=== PATIENT | female | born 1995 | race Caucasian/White ===

== ENCOUNTER 2017-07-08 10:01 | Emergency (ER) | payer OTHER ==
[~2017-07-08] VITALS: Wt 48.5 kg
[2017-07-08] MEDS ORDERED: ACETAMINOPHEN 500 MG TAB PO STA (10:42)
[2017-07-08] MEDS ORDERED: AZIT250T94 PO (10:43)
[2017-07-08] MEDS ORDERED: TYL500 PO (10:44)
[2017-07-08] MEDS ORDERED: D-ME473S18 PO (10:44)
--- NOTE | 2017-07-08 10:51 | ERD ---
ER Documentation Chief Complaint Date/Time DATE: 07/08/17 TIME: 10:46 Chief Complaint FEVER, THROAT PAIN, EAR PAIN, COUGH, BODYACHES, ONSET 7 DAYS HPI This is a 21-year-old female presents to the ER with fever, sore throat, productive cough, ear pain, body aches and been going on over the last 7 days. Patient denies any nausea vomiting or diarrhea. She denies any urinary frequency or dysuria. Patient took Motrin last night her fever, however fever returned this morning. Patient has not traveled anywhere recently. There are no sick contacts at home. She denies any chest pain or shortness of breath. She denies any neck pain or neck stiffness. ROS 12 point review of systems was done, all negative except per HPI. Medications Home Meds Active Scripts Acetaminophen* (Tylenol*) 500 Mg Tab, 500 MG PO Q4H Y for MILD PAIN LEVEL 1-3 for 5 Days, TAB Prov:ADELFO HAQUE 07/08/17 Dextromethorphan Hb-Promethazine Hcl (Promethazine DM Syrup) 473 Ml Syrup, 10 ML PO Q6H Y for 5, #4 OZ Prov:REINA HAQUEHITESH Bynum 07/08/17 Azithromycin* (Zithromax*) 250 Mg Tablet, 250 MG PO .ZPACK DIRECTED, #6 TAB TAKE 500 MG (2 TABS) THE FIRST DAY THEN 250 MG (1 TAB) DAYS 2-5 Prov:REINA HAQUEHITESH Bynum 07/08/17 Physical Exam Vitals Vital Signs Date Time Temp Pulse Resp B/P Pulse Ox O2 Delivery O2 Flow Rate FiO2 07/08/17 10:05 101.9 121 16 107/61 100 Physical Exam GENERAL: The patient is well-developed, well-nourished, in no acute distress. NECK: Cervical spine is non tender with no step off. Supple, no nuchal rigidity HEENT: Atraumatic. Pupils equal, round and reactive to light. Extraocular muscles are grossly intact. Conjunctivae pink, no discharge. Bilateral tympanic membranes are clear with no evidence of erythema, effusion or dulling of the light reflex. Tonsilar erythema with exudates, no uvular deviation no kissing tonsils. Clear rhinorrhea. RESPIRATORY: Clear to auscultation bilaterally. There are no rales, wheezes or rhonchi. HEART: Regular rate and rhythm. No murmurs, clicks, rubs or gallops. EXTREMITIES: No clubbing or cyanosis. Full range of motion. Grossly neurovascularly intact. NEUROLOGIC: Alert and oriented. Cranial nerves II through XII are intact. SKIN: There is no rash. The skin is warm and dry. Results 24 hrs Current Medications Medications (Trade) Dose Ordered Sig/Charissa Route PRN Reason Start Time Stop Time Status Last Admin Dose Admin Acetaminophen (Tylenol Tab) 1,000 mg ONCE STAT PO 07/08/17 10:42 07/08/17 10:43 DC Procedures/MDM Differential diagnosis includes but is not limited to; Viral URI, allergic rhinitis, bronchitis, pertussis,pneumonia, strep throat, otitis media, meningitis, sepsis, endocarditis. Patient will be treated with azithromycin for possible bacterial pharyngitis versus bacterial upper respiratory infection , as she has had a fever for a week now and did have some exudates on her physical examination. Patient additionally has a productive cough, she will be treated with promethazine. Clinical suspicion for pneumonia is low as patient appears well, is not hypoxic or in any respiratory distress. Additionally, patients lung examination is benign. Plan was discussed with patient they understand and agree. Patient needs to follow up with PCP in 1-2 days or return to ER sooner if symptoms worsen. Departure Diagnosis: Primary Impression: Pharyngitis Additional Impression: Upper respiratory infection Condition: Stable Patient Instructions: Pharyngitis, Strep (Presumed) Additional Instructions: Call your primary care doctor TOMORROW for an appointment during the next 1-2 days.See the doctor sooner or return here if your condition worsens before your appointment time. ADELFO HAQUE Jul 08, 2017 10:51
[2017-07-12] MEDS ORDERED: IBUP-1542 PO (19:19)
[2017-07-12] MEDS ORDERED: AMOX1TAB10 PO (19:19)
[2017-07-12] MEDS ORDERED: MAGIC MOUTHWASH (19:19)
== END 2017-07-08 12:09 | disposition home or self-care (01) ==
LOC: FTE 10:01
DX: J02.9 Acute pharyngitis, unspecified (principal); J06.9 Acute upper respiratory infection, unspecified
CPT/HCPCS: Z7502; Z7610; 99284

== ENCOUNTER 2018-09-29 20:23 | Inpatient (IN) | END 2018-10-03 15:43 | disposition home or self-care (01) | DRG 761 ==

== ENCOUNTER 2018-10-04 05:11 | Inpatient (IN) | END 2018-10-07 14:05 | disposition home or self-care (01) | DRG 743 ==